=== PATIENT | female | born 1985 | race Two or more races ===

== ENCOUNTER 2016-06-28 12:29 | Observation (INO) | payer SELFPAY ==
[~2016-06-28] VITALS: Ht 165.1 cm; Wt 65.8 kg
[2016-06-28 13:35] LABS: Urine Bilirubin Negative (Negative); Urine Blood Negative /uL (Negative); Urine Color Yellow (Yellow); Urine Glucose Normal (Normal); Urine Ketone TRACE (Negative); Urine Mucus FEW (None Seen); Urine Nitrite Negative (Negative); Urine RBC <1 /hpf (0 - 4); Urine Squamous Epithelial Cell FEW /hpf (<5); Urine pH 5.5 (5.0-8.0)
[2016-06-28] MEDS ORDERED: SODIUM CHLORIDE 0.9% 1,000 ML IVB ONE (14:53)
[2016-06-28] MEDS ORDERED: METOCLOPRAMIDE HCL 5MG/ml INJ 2ml VIAL IV ONE (15:00)
[2016-06-28] MEDS ORDERED: NALBUPHINE HCL 10 MG/1ml INJECTION IV ONE (15:00)
[2016-06-28 15:02] VITALS: BP 111/82
[2016-06-28 15:52] LABS: Magnesium 2.4 mg/dL (1.6-2.6)
== END 2016-06-28 16:50 | disposition home or self-care (01) | DRG 782 ==
LOC: ER 12:29 → OVERFLOW 14:56 → ER 16:49
PROVIDERS: ADMIT Emergency Medicine; ATTEND Emergency Medicine
DX: O46.91 Antepartum hemorrhage, unspecified, first trimester (principal); Z3A.01 Less than 8 weeks gestation of pregnancy
CPT/HCPCS: 36415; 76801; 81001; 83690; 83735; 84443; 84702; 99285; G0378

== ENCOUNTER 2016-06-30 10:07 | Emergency (ER) | payer SELFPAY ==
[~2016-06-30] VITALS: Ht 165.1 cm; Wt 65.8 kg
[2016-06-30 10:46] LABS: Basophils # (auto) 0 uL; Basophils % (auto) 0.9 % (0.0-2.0); DEFINITIVE VIEW TRANSMISSION; Eosinophils # (auto) 0 uL; Eosinophils % (auto) 0.7 % (0.0-7.0); Hematocrit 36.4 % (36.0-46.0); Hemoglobin 11.9 g/dL (12.2-16.2); Lymphocytes # (auto) 1.2 uL; Lymphocytes % (auto) 36.9 % (10.0-50.0); Mean Corpuscular Hemoglobin 26.9 pg (28.0-32.0); Mean Corpuscular Hgb Conc. 32.7 g/dL (32.0-36.0); Mean Corpuscular Volume 82.2 fL (80.0-100.0); Mean Platelet Volume 7.9 fL (7.4-10.4); Monocytes # (auto) 0.3 uL; Monocytes % (auto) 8.3 % (0.0-12.0); Neutrophils # (auto) 1.8 uL; Neutrophils % (auto) 53.2 % (37.0-80.0); Platelet Count (auto) 307 10^3/uL (140-450); Red Cell Distribution Width 15.3 % (11.6-16.0); White Blood Cell 3.4 10^3/uL (4.4-10.8)
[2016-06-30 14:14] VITALS: BP 101/66
== END 2016-06-30 14:53 | disposition home or self-care (01) ==
LOC: ER 10:07
DX: O20.9 Hemorrhage in early pregnancy, unspecified (principal); Z3A.01 Less than 8 weeks gestation of pregnancy
CPT/HCPCS: 36415; 76801; 76817; 84702; 85025

== ENCOUNTER 2017-07-09 13:25 | Observation (INO) | payer MEDICAID ==
[2017-07-09] MEDS ORDERED: FERR-20 PO (15:14)
[2017-07-09] MEDS ORDERED: PREN-96 PO (15:14)
== END 2017-07-09 15:36 | disposition home or self-care (01) | DRG 566 ==
LOC: LDRP 13:25
PROVIDERS: ADMIT Obstetrics & Gynecology; ATTEND Obstetrics & Gynecology
DX: O36.5930 Maternal care for other known or suspected poor fetal growth, third trimester, not applicable or unspecified (principal); O62.9 Abnormality of forces of labor, unspecified; Z3A.37 37 weeks gestation of pregnancy
CPT/HCPCS: 59025; 76818; 81002; G0378

== ENCOUNTER 2017-07-11 10:00 | Observation (INO) | payer MEDICAID ==
[~2017-07-11 10:00] MED LIST: FERR-20 PO; PREN-96 PO
== END 2017-07-11 11:05 | disposition home or self-care (01) | DRG 566 ==
LOC: LDRP 10:00
PROVIDERS: ADMIT Specialist; ATTEND Specialist
DX: O36.5930 Maternal care for other known or suspected poor fetal growth, third trimester, not applicable or unspecified (principal); Z3A.37 37 weeks gestation of pregnancy
CPT/HCPCS: 59025; 76815; 81002; G0378

== ENCOUNTER 2017-07-14 11:10 | Observation (INO) | payer MEDICAID | END 2017-07-14 13:15 | disposition home or self-care (01) | DRG 566 | LOC: LDRP 11:10 | PROVIDERS: ADMIT Specialist; ATTEND Specialist | DX: O36.5930 Maternal care for other known or suspected poor fetal growth, third trimester, not applicable or unspecified (principal); Z3A.37 37 weeks gestation of pregnancy | CPT/HCPCS: 59025; 76818; 81002; G0378 ==

== ENCOUNTER 2017-07-17 10:46 | Observation (INO) | payer MEDICAID | END 2017-07-17 12:20 | disposition home or self-care (01) | DRG 566 | LOC: LDRP 10:46 | PROVIDERS: ADMIT Obstetrics & Gynecology; ATTEND Obstetrics & Gynecology | DX: O36.5930 Maternal care for other known or suspected poor fetal growth, third trimester, not applicable or unspecified (principal); O26.893 Other specified pregnancy related conditions, third trimester; R10.9 Unspecified abdominal pain; Z3A.38 38 weeks gestation of pregnancy | CPT/HCPCS: 59025; 76818; 81002; G0378 ==

== ENCOUNTER 2017-07-21 11:00 | Observation (INO) | payer MEDICAID | END 2017-07-21 12:36 | disposition home or self-care (01) | DRG 566 | LOC: LDRP 11:00 | PROVIDERS: ADMIT Specialist; ATTEND Specialist | DX: O36.5930 Maternal care for other known or suspected poor fetal growth, third trimester, not applicable or unspecified (principal); Z3A.38 38 weeks gestation of pregnancy | CPT/HCPCS: 59025; 76818; 81002; G0378 ==

== ENCOUNTER 2017-07-24 11:05 | Observation (INO) | payer MEDICAID | END 2017-07-24 13:00 | disposition home or self-care (01) | DRG 566 | LOC: LDRP 11:05 | PROVIDERS: ADMIT Specialist; ATTEND Specialist | DX: O36.5930 Maternal care for other known or suspected poor fetal growth, third trimester, not applicable or unspecified (principal); Z3A.39 39 weeks gestation of pregnancy | CPT/HCPCS: 59025; 76818; 81002; G0378 ==

== ENCOUNTER 2017-07-28 10:52 | Observation (INO) | payer MEDICAID | END 2017-07-28 13:30 | disposition home or self-care (01) | DRG 566 | LOC: LDRP 10:52 | PROVIDERS: ADMIT Specialist; ATTEND Specialist | DX: O36.5930 Maternal care for other known or suspected poor fetal growth, third trimester, not applicable or unspecified (principal); Z3A.39 39 weeks gestation of pregnancy | CPT/HCPCS: 59025; 76818; 81002; G0378 ==

== ENCOUNTER 2023-07-29 10:08 | Emergency (ER) | payer MEDICAID ==
[~2023-07-29] VITALS: Ht 162.6 cm; Wt 64.7 kg
[~2023-07-29 10:08] MED LIST changes: -FERR-20 PO; +FERR325T24 PO
[2023-07-29] MEDS ORDERED: IBUP-1454 PO (11:10)
[2023-07-29] MEDS ORDERED: CLIN1CAP70 PO (11:10)
[2023-07-29 11:21] VITALS: BP 134/67; PULSE 106; RESP 17; TEMP 98.4; O2SAT 96
[2023-07-29] MEDS: cefTRIAXone SOD 1,000 MG VL IM ONE (11:38)
== END 2023-07-29 11:56 | disposition home or self-care (01) ==
LOC: ER 10:08
DX: K04.7 Periapical abscess without sinus (principal); Z79.899 Other long term (current) drug therapy
CPT/HCPCS: 96372; 99283; J0696